=== PATIENT | female | born 1940 | race Two or more races ===

== ENCOUNTER 2016-06-27 13:40 | Day surgery (SDC) | payer SELFPAY ==
[2016-06-27 14:32] VITALS: BP 125/74; PULSE 60; RESP 14; TEMP 97.4; O2SAT 93
[2016-06-27 16:15] VITALS: BP 122/68; PULSE 63; RESP 18; TEMP 97.6; O2SAT 96
[2016-06-27] MEDS ORDERED: LIDOCAINE HCL 1% PF 30 ML VIAL ONE (16:19)
[2016-06-27 16:28] VITALS: BP 121/71; PULSE 68; RESP 18; O2SAT 95
--- NOTE | 2016-06-27 16:36 | RADRPT ---
EXAM DATE/TIME: 06/27/2016 14:56 [place] COMPARISON: No previous studies available for comparison. EXTERNAL COMPARISON: [facility], CT SOFT TISSUE NECK, W/ CONTRAST, Jun 25 2016 INDICATIONS : Right neck lymph node. MEDICAL HISTORY : Hypertension. Asthma. Diabetes. SURGICAL HISTORY : Splenectomy. ENCOUNTER: Initial ACUITY: 1 month PAIN SCORE: 0/10 LOCATION: Right neck ORGAN: Right lymph node SPECIMENS: Five core specimen(s) submitted for pathologic evaluation. DEVICE: 20 gauge Temno needle Post procedure scanning reveals no hematoma or other complication. The possibility does exist that the tissue obtained will be non-diagnostic. If the sample is non-julio gnostic a repeat biopsy or surgical biopsy may need to be performed. TECHNIQUE: 1. Ultrasound guidance for needle biopsy. 2. Needle biopsy. The risks, benefits, and alternatives to ultrasound guided needle biopsy were explained to the patien t in detail including the risk of bleeding and infection. Written and verbal informed consent was ob tained with an spanish interpreter/translator (the patient speaks Bhut[place]). With the patient on the ultrasound table, images were obtained. There is a partially cystic enlarged lymph node in the right inferior neck measuring 2.3 x 1.4 x 1.2 cm. It is deep to the sternocleidoma stoid muscle and abuts the internal jugular vein and carotid artery. Overlying skin was prepped and d raped in the usual sterile fashion and Lidocaine was utilized as a local anesthetic. A needle was advanced into the right neck lymph node and the number of specimens as above obtained an d submitted for pathologic evaluation. The patient tolerated the procedure well and left the ultrasound suite in stable condition. CONCLUSION: Uncomplicated ultrasound guided needle biopsy of the abnormal enlarged and partially cystic right nec k lymph node. Geovanny Landry MD on June 27, 2016 at 16:32 Board Certified Radiologist. This report was verified electronically.
== END 2016-06-27 16:45 | disposition home or self-care (01) ==
LOC: HRAD 13:40 → HRIP 13:50 → HRAD 16:45
PROVIDERS: ATTEND Family Medicine
DX: D11.7 Benign neoplasm of other major salivary glands (principal); I10 Essential (primary) hypertension; J45.909 Unspecified asthma, uncomplicated; E11.9 Type 2 diabetes mellitus without complications
CPT/HCPCS: 38505; 76942; 88184; 88185; 88305